=== PATIENT | female | born 1945 | race African-American/Black ===

== ENCOUNTER → 2016-12-06 | Outpatient (CLI) | payer MEDICARE, OTHER ==
--- NOTE | ~2016-12-06 | US136 ---
[facility] A Service of [facility] RADIOLOGY TEXT RESULTS PATIENT: JORGITO BARRETT LOCATION: CNIV : 44 UNIT #: [id number] AGE: [address]: Noé Xie MD SEX: F ORDER DR: [id number] [facility] [address] [place], [place] [address] [id number] O MR#: [id number] Acc #: [id number] NAME: JORGITO BARRETT : 1945 SEX: F STUDY DATE/TIME: 12/06/2016 13:52 UNIT: CNIV ROOM: STUDY DESCRIPTION: US U/L Ext [employer] Bil Attending Physician: Noé Xie M.D. Referring Physician: Noé Xie M.D. Ordering Physician: Noé Xie M.D. Primary Care Physician: Geoffrey Rosado Jr., M.D. MEDICAL IMAGING REPORT This report is preliminary unless electronic signature is present EXAM Ankle to brachial indices DATE OF EXAMINATION 12/06/2016 HISTORY Peripheral artery disease. FINDINGS The right brachial pressure is 174 and the left brachial pressure is 156. The right dorsalis pedis pressure is 91, posterior tibial 75, and toe 31 for an ankle to brachial index of 0.52. The left dorsalis pedis pressure is 89, posterior tibial 77, and toe 46, for an ankle to brachial index of 0.51. Pulse volume recording tracings demonstrate damping of the amplitude of the signal at the ankle level of both sides. Doppler waveform analysis indicates a monophasic signal in the posterior tibial and dorsalis pedis arteries bilaterally. IMPRESSION Moderate ischemia of both legs. Ankle to brachial index is 0.52 on the right and 0.51 on the left. Dictated by... Jose Grayson M.D. THIS IS AN ELECTRONICALLY VERIFIED REPORT [facility] A Service of [facility] RADIOLOGY TEXT RESULTS PATIENT: JORGITO BARRETT LOCATION: CNIV : 44 UNIT #: [id number] AGE: [address]: Noé Xie MD SEX: F ORDER DR: Jose Grayson M.D. at 12/07/2016 7:34 AM PURVI/giselle TD: 12/06/2016 18:08 JOB #: [id number] MEDICAL IMAGING REPORT Page 1 of 1 COPY
--- NOTE | ~2016-12-06 | US37 ---
[facility] A Service of [facility] RADIOLOGY TEXT RESULTS PATIENT: JORGITO BARRETT LOCATION: CNIV : 44 UNIT #: [id number] AGE: [address]: Noé Xie MD SEX: F ORDER DR: [id number] [facility] [address] [place], [place] [address] [id number] O MR#: [id number] Acc #: [id number] NAME: JORGITO BARRETT : 1945 SEX: F STUDY DATE/TIME: 12/06/2016 14:26 UNIT: CNIV ROOM: STUDY DESCRIPTION: US Carotid W/Doppler Bilateral Attending Physician: Noé Xie M.D. Referring Physician: Noé Xie M.D. Ordering Physician: Noé Xie M.D. Primary Care Physician: Geoffrey Rosado Jr., M.D. MEDICAL IMAGING REPORT This report is preliminary unless electronic signature is present EXAM Carotid duplex scan date of examination 12/06/2016 HISTORY Carotid stenosis. FINDINGS The right common carotid artery has a small amount of dense plaque. There is dense plaque. There is dense plaque in the right carotid bulb which extends up in the proximal internal and external carotid arteries. Peak systolic velocity in the proximal right internal carotid artery is 59 cm/sec with an end diastolic velocity of 10 cm/sec. The ICA/CCA ratio on the right is 0.74. Peak systolic velocity in the right external carotid artery is 104 cm/sec. The right vertebral artery is patent with antegrade flow. The left common carotid artery has a small amount of dense plaque. There is a large amount of dense plaque in the proximal left internal and external carotid arteries. Peak systolic velocity in the proximal left internal carotid artery is 164 cm/sec with an end diastolic velocity of 19 cm/sec. The ICA/CCA ratio on the left is 1.93. Peak systolic velocity in the left external carotid artery is 141 cm/sec. The left vertebral artery is patent with antegrade flow. IMPRESSION Small amount of plaque, but no significant stenosis (less than 50%) in the right internal and external carotid arteries. Moderate stenosis (50-69%) of the left internal carotid artery. Significant stenosis of the left external carotid artery. Patent vertebral arteries bilaterally with antegrade flow. [facility] A Service of [facility] RADIOLOGY TEXT RESULTS PATIENT: JORGITO BARRETT LOCATION: CNIV : 44 UNIT #: [id number] AGE: [address]: Noé Xie MD SEX: F ORDER DR: Dictated by... Jose Grayson M.D. THIS IS AN ELECTRONICALLY VERIFIED REPORT Jose Grayson M.D. at 12/07/2016 7:34 AM PURVI/aj TD: 12/06/2016 18:33 JOB #: [id number] MEDICAL IMAGING REPORT Page 1 of 1 COPY
== END | disposition home or self-care (01) ==
LOC: CNIV 13:36
DX: I73.9 Peripheral vascular disease, unspecified (principal); I65.23 Occlusion and stenosis of bilateral carotid arteries; I99.8 Other disorder of circulatory system; R09.89 Other specified symptoms and signs involving the circulatory and respiratory systems
CPT/HCPCS: 93880; 93922

== ENCOUNTER → 2017-03-07 | Outpatient (CLI) | payer MEDICARE, OTHER ==
--- NOTE | ~2017-03-07 | US136 ---
[facility] A Service of [facility] RADIOLOGY TEXT RESULTS PATIENT: JORGITO BARRETT LOCATION: CNIV : 44 UNIT #: [id number] AGE: [address]: DOTTIE FERREIRA APRN SEX: F ORDER DR: [id number] [facility] [address] [place], [place] [address] [id number] O MR#: [id number] Acc #: [id number] NAME: JORGITO BARRETT : 1945 SEX: F STUDY DATE/TIME: 03/07/2017 10:58 UNIT: CNIV ROOM: STUDY DESCRIPTION: US U/L Ext Art [employer] Ltd Bilat Attending Physician: Dottie Ferreira Aprn Referring Physician: Dottie Ferreira Aprn Ordering Physician: Dottie Ferreira Aprn Primary Care Physician: Geoffrey Rosado Jr., M.D. MEDICAL IMAGING REPORT This report is preliminary unless electronic signature is present EXAM Ankle-brachial indices 03/07/2017 HISTORY Peripheral arterial disease. FINDINGS The right brachial pressure is 196 and the left brachial pressure is 193. The right dorsalis pedis pressure is 143, posterior tibial 136, and toe 37, for an ankle-brachial index of 0.73. The left dorsalis pedis pressure is 112, posterior tibial 119, and toe 58, for an ankle-brachial index of 0.61. Doppler waveform analysis indicates a biphasic signal in the posterior tibial and dorsalis pedis arteries bilaterally. There is a good amplitude signal in the ankle level on pulse volume recording tracings bilaterally. The digital signal is diminished on the right side compared to the left. IMPRESSION Moderate ischemia or both legs. Ankle-brachial index is 0.73 on the right and 0.61 on the left. 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 Dictated by... Jose Grayson M.D. THIS IS AN ELECTRONICALLY VERIFIED REPORT Jose Grayson M.D. at 03/08/2017 7:30 AM [facility] A Service [facility] RADIOLOGY TEXT RESULTS PATIENT: BARRETT,JORGITO LOCATION: CNIV : 44 UNIT #: [id number] AGE: [address]: DOTTIE FERREIRA APRN SEX: F ORDER DR: PURVI/ashley TD: 03/07/2017 23:20 JOB #: [id number] MEDICAL IMAGING REPORT Page 1 of 1 COPY
--- NOTE | ~2017-03-07 | US83 ---
[facility] A Service of [facility] & [facility] RADIOLOGY TEXT RESULTS PATIENT: JORGITO BARRETT LOCATION: CNIV : 44 UNIT #: [id number] AGE: [address]: DOTTIE FERREIRA APRN SEX: F ORDER DR: [id number] [facility] [address] [place], [place] [address] [id number] O MR#: [id number] Acc #: [id number] NAME: JORGITO BARRETT : 1945 SEX: F STUDY DATE/TIME: 03/07/2017 11:28 UNIT: CNIV ROOM: STUDY DESCRIPTION: US LE [employer] Attending Physician: Dottie Ferreira Aprn Referring Physician: Dottie Ferreira Aprn Ordering Physician: Dottie Ferreira Aprn Primary Care Physician: Geoffrey Rosado Jr., M.D. MEDICAL IMAGING REPORT This report is preliminary unless electronic signature is present EXAM Right lower extremity arterial duplex scan 03/07/2017 HISTORY Right leg stent surveillance. FINDINGS High-resolution B-mode imaging and color flow Doppler analysis was performed of the right lower extremity arteries. The right common femoral artery is patent with a peak systolic velocity of 196 cm/sec. The right superficial femoral artery is patent with a peak systolic velocity of 193 cm/sec proximal thigh, 221 cm/sec in the mid-thigh, and 183 cm/sec in the distal thigh. The right popliteal artery is patent with a peak systolic velocity of 150 cm/sec. Runoff is noted through the tibioperoneal trunk which has a peak systolic velocity of 65 cm/sec, posterior tibial 61 cm/sec, peroneal artery 103 cm/sec, and anterior tibial 110 cm/sec. The stent is not specifically identified. IMPRESSION Patent right lower extremity arteries. There are elevated velocities throughout the right lower extremity, but no focal elevation of velocities to suggest significant stenosis. There is no stent clearly identified. Dictated by... Jose Grayson M.D. THIS IS AN ELECTRONICALLY VERIFIED REPORT Jose Grayson M.D. at 03/08/2017 7:30 AM SBS/pcl [facility]. [facility] A Service of [facility] & [facility] RADIOLOGY TEXT RESULTS PATIENT: JORGITO BARRETT LOCATION: CNIV : 44 UNIT #: [id number] AGE: [address]: DOTTIE FERREIRA [employer]A TESTER SEX: F ORDER DR: TD: 03/07/2017 23:22 JOB #: [id number] MEDICAL IMAGING REPORT Page 1 of 1 COPY
[2017-03-07 16:04] LABS: BASOPHIL% 0.2 % (0-2.5); EOSINOPHIL# 0.1 X10e3 (0-0.7); HEMATOCRIT 30.5 % (35.0-45.0); HEMOGLOBIN 9.8 gm/dL (12.0-16.0); LYMPHOCYTE# 1.4 X10e3 (1.0-3.5); LYMPHOCYTE% 20.6 % (17.0-45.0); MEAN CELL VOLUME 79.8 FL (83-96); MEAN CORPUSCULAR HEMOGLOBIN 25.8 PG (28-34); MEAN CORPUSCULAR HGB CONC 32.3 g/dL (30-36); MEAN PLATELET VOLUME 7.4 FL (6.5-11.5); MONOCYTE# 0.4 X10e3 (0-1.0); NEUTROPHIL# 5.1 X10e3 (1.5-7.1); NEUTROPHIL% 72.2 % (40-75); PLATELET COUNT 225 X10e3 (140-420); RED BLOOD COUNT 3.82 X10e (3.90-5.30); RED CELL DISTRIBUTION WIDTH 19.1 % (11.0-15.5)
[2017-03-07 16:05] LABS: URINE APPEARANCE CLEAR; URINE BILIRUBIN NEG (NEG); URINE BLOOD NEG (NEG); URINE COLOR YELLOW; URINE GLUCOSE NEG (NEG); URINE KETONE NEG (NEG); URINE LEUKOCYTE ESTERASE NEG (NEG); URINE NITRATE NEG (NEG); URINE PROTEIN 1+ (NEG)
[2017-03-07 16:07] LABS: DIFF IND NO
[2017-03-07 16:08] LABS: URBCS1 AUWI 0-2 /[HPF] (0-2); URINE BACTERIA AUWI NEG (NEGATIVE); URINE SQUAMOUS EPITHELIAL CELL NONE SEEN /[HPF]; UWBCS1 AUWI 0-2 (0-5)
[2017-03-07 16:12] LABS: URINE SOURCE CLEAN CATCH
[2017-03-07 16:15] LABS: ALBUMIN SERUM 3.1 g/dL (3.5-5.0); BILIRUBIN,TOTAL 0.9 mg/dL (0.2-2.0); CALCIUM SERUM 9.8 mg/dL (8.4-10.2); CREATININE SERUM 0.8 mg/dL (0.6-1.4); GLOM FILT RATE Estimated 85.4 mL/min (>60); POTASSIUM 3.9 mmol/L (3.5-5.1); PROTEIN TOTAL SERUM 6.6 g/dL (6.0-8.3)
== END | disposition home or self-care (01) ==
LOC: CNIV 10:37
PROVIDERS: Nurse Practitioner
DX: I73.9 Peripheral vascular disease, unspecified (principal)
CPT/HCPCS: 80053; 81003; 85025; 87086; 93922; 93926